=== PATIENT | female | born 1955 | race Caucasian/White ===

== ENCOUNTER 2022-06-15 22:10 | Emergency (ER) | payer MEDICARE, SELFPAY ==
[2022-06-15 22:21] VITALS: BP 190/80; PULSE 89; RESP 16; TEMP 36.4; O2SAT 98; BMI 36.6
[2022-06-15] MEDS: LORazepam 2 MG/ML inj 0.5 MG IVP (23:33)
[2022-06-15] MEDS: 0.9 % SODIUM CHLORIDE 1000 ml 1,000 ML IV (23:33)
[2022-06-15] MEDS: ONDANSETRON 2 MG/ML inj 4 MG IVP (23:33)
[2022-06-15] MEDS: GI COCKTAIL (VISC LIDO/ANTACID) 30 ML PO (23:36)
[2022-06-15] MEDS: diphenhydrAMINE 50 MG/ML inj 25 MG IVP (23:54)
[2022-06-15] MEDS: METOCLOPRAMIDE HCL 10 MG in 0.9 % SODIUM CHLORIDE 100 ml 100 ML 306 MG IVPB (23:56)
[2022-06-15 23:57] LABS: Basophils Percent Auto 0.1 % (0.0-3.0); Eosinophils Percent Auto 0.2 % (0.0-7.0); Hemoglobin* 17.5 gm/dL (12.0-16.0); Immature Granulocytes Abs Auto 0.11 K/uL (0.00-0.30); Mean Corpuscular HGB Conc 35 gm/dL (32-36); Mean Corpuscular Hemoglobin 29 pg (26-34); Mean Corpuscular Volume 83 fL (80-100); Monocytes Percent Auto 10.1 % (0.0-11.0); Neutrophils Percent Auto 80.8 % (42.0-72.0); Platelet Count* 276 K/uL (140-440); RDW Coefficient of Variation % 12.3 % (11.5-15.5); Red Blood Count 6.02 m/uL (4.00-5.20); White Blood Count* 13.34 K/uL (4.50-11.00)
[2022-06-16 00:08] LABS: Slide Review Reflex No
[2022-06-16 00:27] LABS: Chloride* 96 mmol/L (96-114); Sodium* 132 mmol/L (135-149)
[2022-06-16 00:30] LABS: Creatinine* 0.6 mg/dL (0.5-1.5); Est. Creatinine Clearance* 48.45; Estimated Glomerular Filt Rate 98 ml/min
[2022-06-16 00:31] LABS: Blood Urea Nitrogen* 12 mg/dL (7-30); Calcium* 8.6 mg/dL (8.4-10.6); Carbon Dioxide* 26 mmol/L (20-32); Glucose* 124 mg/dL (60-115); Potassium* 3.1 mmol/L (3.6-5.1)
[2022-06-16 00:34] LABS: C Reactive Protein* 2.4 mg/dL (0.5-1.0)
[2022-06-16 02:03] VITALS: BP 170/85; PULSE 74; RESP 18; TEMP 36.4; O2SAT 98
--- NOTE | 2022-06-16 02:24 | ED_ITS ---
HPI - Nausea/Vomiting/Diarrhea General Chief complaint: Nausea/Vomiting Stated complaint: Not feeling well post surgical Time Seen by Provider: 06/15/22 22:47 Source: patient, family, RN notes reviewed and old records reviewed History of Present Illness HPI Narrative: Recent 66-year-old woman presenting to the emergency department with a few episodes of vomiting today --said it was blue and purple. Eight days ago had a laparoscopic hysterectomy for grade 1 endometrial cancer. She also had a bilateral salpingo-oophorectomy. Lymph node biopsies as well. Struggled with postop nausea and vomiting requiring longer stay than the anticipated outpatient and also experienced esophageal reflux. Notes to not normally have a history of heartburn or reflux but she is having the symptoms again. No fever. No notable abdominal pain. She does have oxycodone available the but she has only been taking acetaminophen and ibuprofen had actually been better for few days upon return home and then today nausea vomiting again restarted. has had a little bit of dizziness when up. does not seem to be a major symptom. Does not have a prior diagnosis of vertigo. No fever. No increased abdominal pain. Per my review of records, it appears that lorazepam was possibly most helpful in her nausea. She does have a few tablets remaining as well as ODT Zofran at home. Apparently did have rather labile blood pressures both elevated and lower during this extended postoperative period. No cardiovascular disease noted otherwise. Related Data Home Medications Medication Instructions Recorded Confirmed alendronate 70 mg tablet 70 mg PO QWEEK 06/15/22 06/15/22 Allergies Allergy/AdvReac Type Severity Reaction Status Date / Time cefepime Allergy Intermediate Rash Verified 06/15/22 22:26 piperacillin [From Zosyn] Allergy Intermediate Rash Verified 06/15/22 22:26 tazobactam [From Zosyn] Allergy Intermediate Rash Verified 06/15/22 22:26 Review of Systems Status of ROS: Reports: 10 or more systems reviewed and unremarkable except as noted in History and below [facility] Medical History Cervical cancer Hurthle cell carcinoma of thyroid Osteoporosis Social History Smoking Status: Never smoker How often do you have a drink containing alcohol: never AUDIT-C Alcohol total score: 0 Non-prescribed substance use: denies use Exam Narrative: Exam Narrative: Is clearly uncomfortable. Prefers to keep eyes closed. Mumbling answers to responses. Not elaborating. This apparently was help presented prior with exacerbation of nausea. Skin is warm and dry. No evidence of trauma other than a bruise in the right deltoid. Recent IV placement as well. Moving all extremities without difficulty. No edema. Breathing easily. Lungs are clear. Cranial nerves 2-12 look to be intact. No loss of sensation. I do not appreciate nystagmus. Cardiovascular RRR no MR Cortés. Abdomen is soft. Overweight. Mildly tender in the suprapubic area. I do note initial blood pressure to be moderately elevated though rechecks are acceptably lower. Const: Vital Signs, click to edit/add: Vital Signs - 24 hr 06/15/22 22:21 06/16/22 02:03 06/16/22 02:26 Temperature 97.6 F 97.6 F Pulse Rate 68 Pulse Rate [Right Pulse Oximeter] 89 74 Respiratory Rate 16 18 16 Blood Pressure 129/80 Blood Pressure [Ri ght Upper Arm] 190/80 H 170/85 H Pulse Oximetry 98 98 Documenting provider has reviewed patient's vital signs: yes Course Course Hospital Course: Return security monitor without event. Initiated on fluid resuscitation. Treatment initially with lorazepam and Zofran. Still with nausea was ordered for diphenhydramine and metoclopramide. Ultimately able to tolerate a GI cocktail which did relieve her heartburn symptoms. Ultimately able to tolerate oral liquid intake form of water and juice. Warren she could return home. Energy seem to improve with lessening of nausea. Speech cleared. Opening her eyes. Ambulatory. Vital Signs Vital signs: Initial Vital Signs Temperature 97.6 F 06/15/22 22:21 Temperature Source Temporal Artery Scan 06/15/22 22:21 Pulse Rate 89 06/15/22 22:21 Respiratory Rate 16 06/15/22 22:21 Blood Pressure 190/80 H 06/15/22 22:21 Blood Pressure Mean 116 06/15/22 22:21 Blood Pressure Position Supine 06/15/22 22:21 Pulse Oximetry 98 06/15/22 22:21 Oxygen Delivery Method 06/15/22 22:21 Vital Signs Temperature 97.6 F 06/15/22 22:21 Pulse Rate 89 06/15/22 22:21 Respiratory Rate 16 06/15/22 22:21 Blood Pressure 190/80 H 06/15/22 22:21 Pulse Oximetry 98 06/15/22 22:21 Temperature 97.6 F 06/16/22 02:03 Pulse Rate 68 06/16/22 02:26 Respiratory Rate 16 06/16/22 02:26 Blood Pressure 129/80 06/16/22 02:26 Pulse Oximetry 98 06/16/22 02:03 MDM - Nausea/Vomiting/Diarrhea MDM Narrative Medical decision making narrative: Mildly elevated white count not inconsistent with recent surgery. Does not appear to have complications otherwise of surgery evident in history or physical exam. CRP only mildly elevated. Mildly low sodium and potassium. 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 I think the nausea prompting vomiting ultimately resulting in heartburn is more likely explanation. Medical Records Attestation: I reviewed the patient's medical records. Lab Data Attestation: I reviewed the patient's lab results. Labs: Lab Results 06/15/22 06/15/22 Range/Units 23:40 23:40 WBC 13.34 H (4.50-11.00) K/uL RBC 6.02 H (4.00-5.20) m/uL Hgb 17.5 H (12.0-16.0) gm/dL Hct 50.0 (33.0-51.0) % MCV 83 (80-100) fL MCH 29 (26-34) pg MCHC 35 (32-36) gm/dL RDW Coeff of Cortes 12.3 (11.5-15.5) % Plt Count 276 (140-440) K/uL Neut % (Auto) 80.8 H (42.0-72.0) % Lymph % (Auto) 8.0 L (20-44) % [place] % (Auto) 10.1 (0.0-11.0) % Eos % (Auto) 0.2 (0.0-7.0) % Baso % (Auto) 0.1 (0.0-3.0) % Neut # (Auto) 10.80 H (1.7-7.0) K/uL Lymph # (Auto) 1.10 (0.90-2.90) K/uL [place] # (Auto) 1.30 H (0.00-0.90) K/UL Eos # (Auto) 0.00 (0.00-0.50) K/uL Baso # (Auto) 0.00 (0.00-0.30) K/uL Abs Immat Gran (auto) 0.11 (0.00-0.30) K/uL Sodium 132 L (135-149) mmol/L Potassium 3.1 L (3.6-5.1) mmol/L Chloride 96 (96-114) mmol/L Carbon Dioxide 26 (20-32) mmol/L BUN 12 (7-30) mg/dL Creatinine 0.6 (0.5-1.5) mg/dL Estimated Creat Clear 48.45 Estimated GFR 98 ml/min Glucose 124 H (60-115) mg/dL Calcium 8.6 (8.4-10.6) mg/dL C-Reactive Protein 2.4 H (0.5-1.0) mg/dL Discharge Plan Discharge Clinical Impression: Nausea & vomiting Patient Disposition: Home w/ Parent or Adult Condition: Improved Additional Instructions: Slow advance of diet over the next 36 hours. Focus on hydration. Start with diluted juices, broth. Advancing to thicker soups and smoothies. Return for intractable vomiting, increasing and persistent abdominal pain, fever. If you experience a recurrence of the heartburn symptoms, might try liquid antacid/anti-gas. Prescriptions: No Action alendronate 70 mg tablet 70 mg PO QWEEK 0RF Label Comments: TAKE 1 TABLET (70 MG) BY MOUTH ONCE A WEEK IN THE MORNING. TAKE ON EMPTY STOMACH WITH FULL GLASS OF WATER. DO NOT LIE DOWN FOR 1 HR. Follow Up/Referrals: Rosalia Berkowitz DO [Primary Care Provider] - Stand Alone Forms: MyHealth Info Instructions
[2022-06-16 02:26] VITALS: BP 129/80; PULSE 68; RESP 16
== END 2022-06-16 02:10 | disposition home or self-care (01) ==
PROVIDERS: Emergency Provider Family Medicine; PCP Family Medicine
DX: R11.2 Nausea with vomiting, unspecified (principal)
CPT/HCPCS: 36415; 80048; 85025; 86140; 96365; 96375; 99283; 99284; A9270; J1200; J2060; J2405; J2765; J7030

== ENCOUNTER 2023-06-17 14:23 | Emergency (ER) | payer MEDICARE, SELFPAY ==
[2023-06-17] VITALS (9 sets, daily range): BP systolic 183; BP diastolic 91; PULSE 59–75; RESP 16; TEMP 36.9; O2SAT 95–99; BMI 36.6
--- NOTE | 2023-06-17 15:23 | ED_ITS ---
HPI - Nausea/Vomiting/Diarrhea General Time Seen by Provider: 15:46 Date Seen: 06/17/23 Chief complaint: Nausea/Vomiting Stated complaint: Vomiting Time Seen by Provider: 06/17/23 15:14 Source: patient and RN notes reviewed Mode of arrival: ambulatory Limitations: no limitations History of Present Illness HPI Narrative: Patient is a 67-year-old female coming in with nausea vomiting that started this morning. She felt like she had to go to the bathroom and proceeded to then have nausea vomiting. She has not been able to eat anything today, is not been able to keep any fluids down really at all. She is feeling weak. There has been no fevers or chills with this. She is burping some. She has basically only throwing up bile at this point. Her last bowel movement was yesterday and was normal. Is not passing gas from below. Has no history of prior bowel obstructions. About a year ago had a hysterectomy for early stage endometrial cancer per report. She did not have to do anything except the surgery, no radiation from what they are telling me. No other abdominal surgeries. No travel, no ill contacts that she is aware of. Denies any significant abdominal pain with this but does feel bloated. No associated respiratory symptoms. MD elicited complaint: nausea and vomiting Associated nausea: Yes Associated abdominal pain: No Related Data Home Medications Medication Instructions Recorded Confirmed alendronate 70 mg tablet 70 mg PO QWEEK 06/15/22 06/15/22 Allergies Allergy/AdvReac Type Severity Reaction Status Date / Time cefepime Allergy Intermediate Rash Verified 06/15/22 22:26 piperacillin [From Zosyn] Allergy Intermediate Rash Verified 06/15/22 22:26 tazobactam [From Zosyn] Allergy Intermediate Rash Verified 06/15/22 22:26 Review of Systems Status of ROS: Reports: 6 or more systems reviewed and unremarkable except as noted in History and below GI: Reports: nausea PFSH PFSH Medical History (Updated 06/17/23 @ 19:19 by Josephine Barcenas MD) Uterine cancer ?C55 - Malignant neoplasm of uterus, part unspecified (ICD-10) Hurthle cell carcinoma of thyroid ?C73 - Malignant neoplasm of thyroid gland (ICD-10) Osteoporosis ?M81.0 - Age-related osteoporosis without current pathological fracture (ICD- 10) Social History Smoking Status: Never smoker Do you use any of these nicotine containing products: None Second hand tobacco smoke exposure: No How often do you have a drink containing alcohol: never AUDIT-C Alcohol total score: 0 Non-prescribed substance use: denies use service: No Exam Const: Vital Signs, click to edit/add: Vital Signs - 24 hr 06/17/23 14:54 06/17/23 15:28 06/17/23 16:13 Temperature 98.4 F Pulse Rate 59 L Pulse Rate [Pulse Oximeter] 62 Respiratory Rate 16 Blood Pressure [Ri ght Upper Arm] 183/91 H Pulse Oximetry 99 96 97 Oxygen Delivery Me thod Room Air 06/17/23 16:42 06/17/23 17:00 06/17/23 17:30 Temperature Pulse Rate 64 64 65 Pulse Rate [Pulse Oximeter] Respiratory Rate Blood Pressure [Ri ght Upper Arm] Pulse Oximetry 98 95 97 Oxygen Delivery Me thod 06/17/23 18:00 06/17/23 18:34 06/17/23 19:00 Temperature Pulse Rate 75 68 72 Pulse Rate [Pulse Oximeter] Respiratory Rate Blood Pressure [Ri ght Upper Arm] Pulse Oximetry 97 98 95 Oxygen Delivery Me thod Documenting provider has reviewed patient's vital signs: yes Common normals: average body habitus, oriented x3 and alert General appearance: cooperative, well kempt and well developed Other: Seems uncomfortable nauseated, tends to keep her eyes closed and is holding onto an emesis bag. HENMT: Common normals: normocephalic, head/scalp atraumatic and hearing grossly normal bilaterally Head and scalp: normocephalic and atraumatic Neck & C-Spine: Common normals: full ROM, no lymphadenopathy and supple Resp: Common normals: normal respiratory effort, no retractions, no use of accessory muscles and clear to auscultation bilaterally Effort & inspection: able to speak in complete sentences Auscultation: clear to auscultation bi laterally Cardio: Common normals: regular rate, regular rhythm, S1 normal heart sound, S2 normal heart sound, no gallops and no clicks Rate: regular rate Rhythm: regular rhythm Heart sounds: S1 normal and S2 normal GI: Common normals: soft to palpation, non-tender, no hepatosplenomegaly and no masses Auscultation: hypoactive bowel sounds Palpation: soft and no hepatosplenomegaly Neuro: Common normals: oriented x3 Sensorium/orientation: alert Psych: Appearance: well kempt Course Course Hospital Course: Will place an IV, start 1 L normal saline and 4 mg IV Zofran for symptom control. Will get baseline labs. Will initiate a flat and upright abdominal x- ray to ensure no obstructive symptoms. They understand if there is anything concerning on the abdominal imaging plain films or on the labs, then we would likely proceed to CT imaging. Will see how she responds to the IV fluids and Zofran. Hopefully this is a gastroenteritis but obstructive bowel pathology certainly is a concern at this time. Reevaluation(s) Time of Reevaluation #1: 17:20 Reevaluation #1: Reviewed with patient that there is no definitive obstructive pathology on the abdominal film. There is stool buildup in the colon. She is still feeling nauseated, states she did start getting some mid abdominal pain. Will proceed with CT imaging to ensure were not missing any acute pathology. Did review that she has 4+ ketones and elevated lactate which certainly shows probable s ignificant dehydration. Will order 2 L of fluids. Time of Reevaluation #2: 19:12 Reevaluation #2: Reviewed CT findings with patient. She has a nonobstructing stone on the left side. She can review that with her primary care provider and see if urology would do anything with this. It may be important to know for the fact if she does get a urinalysis, might have some mild hematuria due to some irritation of the stone in the ureter. This stone is however not obstructing at this time per Radiology report. There is nothing to suggest any acute abnormality in abdomen. Reviewed with her that she would be considered to have viral gastroenteritis. Recommend ongoing conservative management with oral fluids and nausea barbara ceballos. Will send a prescription for Zofran from [facility] as her pharmacy is closed. Vital Signs Vital signs: Initial Vital Signs Temperature 98.4 F 06/17/23 14:54 Temperature Source Temporal Artery Scan 06/17/23 14:54 Pulse Rate 62 06/17/23 14:54 Respiratory Rate 16 06/17/23 14:54 Blood Pressure 183/91 H 06/17/23 14:54 Blood Pressure Mean 121 H 06/17/23 14:54 Pulse Oximetry 99 06/17/23 14:54 Oxygen Delivery Method Room Air 06/17/23 14:54 Vital Signs Temperature 98.4 F 06/17/23 14:54 Pulse Rate 62 06/17/23 14:54 Respiratory Rate 16 06/17/23 14:54 Blood Pressure 183/91 H 06/17/23 14:54 Pulse Oximetry 99 06/17/23 14:54 Oxygen Delivery Method Room Air 06/17/23 14:54 Temperature 98.4 F 06/17/23 14:54 Pulse Rate 72 06/17/23 19:00 Respiratory Rate 16 06/17/23 14:54 Blood Pressure 183/91 H 06/17/23 14:54 Pulse Oximetry 95 06/17/23 19:00 Oxygen Delivery Method Room Air 06/17/23 14:54 MDM - Nausea/Vomiting/Diarrhea Lab Data Attestation: I reviewed the patient's lab results. Labs: Lab Results 06/17/23 06/17/23 Range/Units 15:30 16:05 WBC 8.89 (4.50-11.00) K/uL RBC 5.38 H (4.00-5.20) m/uL Hgb 15.8 (12.0-16.0) gm/dL Hct 47.0 (33.0-51.0) % MCV 87 (80-100) fL MCH 29 (26-34) pg MCHC 34 (32-36) gm/dL RDW Coeff of Cortes 11.9 (11.5-15.5) % Plt Count 233 (140-440) K/uL Neut % (Auto) 90.2 H (42.0-72.0) % Lymph % (Auto) 7.8 L (20-44) % [place] % (Auto) 1.6 (0.0-11.0) % Eos % (Auto) 0.0 (0.0-7.0) % Baso % (Auto) 0.2 (0.0-3.0) % Neut # (Auto) 8.00 H (1.7-7.0) K/uL Lymph # (Auto) 0.70 L (0.90-2.90) K/uL [place] # (Auto) 0.10 (0.00-0.90) K/UL Eos # (Auto) 0.00 (0.00-0.50) K/uL Baso # (Auto) 0.02 (0.00-0.30) K/uL Abs Immat Gran (auto) 0.02 (0.00-0.30) K/uL Imm/Tot Granulo (auto) 0.2 % Sodium 136 (135-149) mmol/L Potassium 3.7 (3.6-5.1) mmol/L Chloride 100 (96-114) mmol/L Carbon Dioxide 25 (20-32) mmol/L BUN 15 (7-30) mg/dL Creatinine 0.7 (0.5-1.5) mg/dL Estimated Creat Clear 47.78 Estimated GFR 94 ml/min Glucose 134 H (60-115) mg/dL Lactate 3.2 H (0.5-1.9) mmol/L Calcium 9.3 (8.4-10.6) mg/dL Total Bilirubin 1.0 (0.1-1.5) mg/dL AST 36 H (12-35) U/L ALT 28 (4-35) U/L Alkaline Phosphatase 93 (40-150) U/L C-Reactive Protein 0.8 (0.5-1.0) mg/dL Total Protein 8.4 H (6.0-8.3) g/dL Albumin 5.0 (3.3-5.0) g/dL Urine Color Yellow (Yellow) Urine Appearance Clear (Clear) Urine pH 6.5 (5.0-8.5) Ur Specific [place] 1.025 (1.000-1.030) Urine Protein Trace A (Negative) Urine Glucose (UA) Negative (Negative) Urine Ketones 4+ A (Negative) Urine Blood 2+ A (Negative) Urine Nitrite Negative (Negative) Urine Bilirubin Negative (Negative) Urine Urobilinogen 0.2 (0.2-1.0) Ur Leukocyte Esterase Negative (Negative) Urine RBC 5-10 A (0-2) Urine WBC 0-2 (0-5) Ur Squamous Epith Cells Few (None-Few) Urine Bacteria None (None) Imaging Data Abdominal x-ray: Attestation: I have reviewed the pertinent imaging results. Radiologist's impression: Patient: DARRELL LOPEZ Facility:[facility] Patient ID:?[id number] Site Patient ID:?[id number]. Site :?[id number] Study:?XRay Abdomen/Pelvis 2 VIEWS-06/17/2023 4:45:21 PM Ordering Physician:Adele Burton Final Report: Indication: Nausea and vomiting Technique: Abdomen 2 view, 4 films Comparison: None Findings/Impression: No dilated loops of large or small intestine with a moderate amount of stool within the colon. Degenerative changes lower lumbar spine. Multiple phleboliths in the pelvis. Mild vascular distention at the lung bases. Dictated by Minesh Nelson MD @ 06/17/2023 5:13:41 PM (Electronic Signature) CT scan - abdomen: Attestation: I have reviewed the pertinent imaging results. Radiologist's impression: Patient: DARRELL LOPEZ Facility:?[facility] Patient ID:?[id number] Site Patient ID:?[id number]. Site :?[id number] Study:?CT Abdomen/Pelvis W ISOVUE 370-06/17/2023 5:59:43 PM Ordering Physician:?Swapna Burton Final Report: INDICATION: Abdominal pain with nausea and vomiting. TECHNIQUE: CT abdomen and pelvis acquired with 100 cc Isovue 370 IV contrast. COMPARISON: None. FINDINGS: Lower chest: Unremarkable. Liver: Fatty infiltration. Otherwise unremarkable. Gallbladder and bile ducts: Unremarkable. No stones or inflammation. No biliary dilatation. Pancreas: Unremarkable. No mass or inflammation. Spleen: Unremarkable. Normal in size. No masses. Adrenal glands: Unremarkable. No nodules. Kidneys: A prominent 7 x 5 mm stone is at the left ureterovesical junction and appears imminent to pass into the bladder lumen. No other stones. No hydronephrosis. Kidneys otherwise unremarkable. GI tract: Unremarkable. Normal in caliber. No sign of mass or inflammation. Normal appendix. Vasculature: Abdominal aorta is normal in caliber. Mesenteric arteries are patent. Lymph nodes: No lymphadenopathy. Peritoneum/Abdominal Wall: Unremarkable. No sign of mass or infiltration. No free air or significant free fluid. Pelvis: Unremarkable. Bones: Unremarkable for age. IMPRESSION: 7 x 5 mm stone at the left ureterovesical junction is not causing obstructive changes at this time. Remainder the exam is unremarkable. No other finding to explain abdominal pain. Please note that all CT scans at this facility use dose modulation, iterative reconstruction, and/or weight-based dosing when appropriate to reduce radiation dose to as low as reasonably achievable. Dictated by Justin Mitchell MD @ 06/17/2023 6:57:43 PM (Electronic Signature) Discharge Plan Discharge Clinical Impression: Gastroenteritis, Dehydration Patient Disposition: Home, Self-Care Condition: Stable Instructions: Dehydration (ED), Gastroenteritis (ED) Additional Instructions: Use Zofran to help with any nausea so that you can drink fluids. Recommend frequent sips of fluids every 5-10 minutes while awake, this approach will help prevent overload of your stomach and further vomiting. You can advance diet as tolerated back to normal. If you are not improving over the next 24-48 hours, feel you are worsening in any point to have further concerns, please seek re-evaluation. Diarrhea could develop with gastroenteritis. Activity Level: Activity as Tolerated Prescriptions: No Action alendronate 70 mg tablet 70 mg PO QWEEK Patient Comments: TAKE 1 TABLET (70 MG) BY MOUTH ONCE A WEEK IN THE MORNING. TAKE ON EMPTY STOMACH WITH FULL GLASS OF WATER. DO NOT LIE DOWN FOR 1 HR. Follow Up/Referrals: Rosalia Berkowitz DO [Primary Care Provider] - Stand Alone Forms: MyHealth Info Instructions Critical Care Time Critical Care Time Critical Care Time: No
[2023-06-17 15:49] LABS: Appearance Urine Clear (Clear); Bilirubin Urine Negative (Negative); Blood Urine 2+ (Negative); Color Urine Yellow (Yellow); Glucose Urine Negative (Negative); Ketones Urine 4+ (Negative); Leukocyte Esterase Urine Negative (Negative); Nitrite Urine Negative (Negative); Protein Urine Trace (Negative); Specific Gravity Urine 1.025 (1.000-1.030); Urobilinogen Urine 0.2 (0.2-1.0); pH Urine 6.5 (5.0-8.5)
--- NOTE | 2023-06-17 15:51 | CRLHL7_ITS ---
For Patients: As a result of the Century Cures Act, medical imaging exams and procedure reports are released immediately into your electronic medical record. You may view this report before your referring provider. If you have questions, please contact your health care provider. Indication: Nausea and vomiting Technique: Abdomen 2 view, 4 films Comparison: None Findings/Impression: No dilated loops of large or small intestine with a moderate amount of stool within the colon. Degenerative changes lower lumbar spine. Multiple phleboliths in the pelvis. Mild vascular distention at the lung bases. Dictated by Minesh Nelson MD @ 06/17/2023 5:13:41 PM (Electronically Signed)
[2023-06-17] MEDS: ONDANSETRON 2 MG/ML inj 4 MG IVP (16:13)
[2023-06-17] MEDS: 0.9 % SODIUM CHLORIDE 1000 ml 1,000 ML 500 ML IV (16:13)
[2023-06-17 16:14] LABS: Lactate* 3.2 mmol/L (0.5-1.9)
[2023-06-17 16:14] LABS: WBC Urine 0-2 (0-5)
[2023-06-17 16:15] LABS: Squamous Epithelial Cell Urine Few (None-Few)
[2023-06-17 16:29] LABS: Basophils Absolute Auto 0.02 K/uL (0.00-0.30); Basophils Percent Auto 0.2 % (0.0-3.0); Hemoglobin* 15.8 gm/dL (12.0-16.0); Immature Granulocytes Abs Auto 0.02 K/uL (0.00-0.30); Immature Granulocytes Pct Auto 0.2 %; Lymphocytes Percent Auto 7.8 % (20-44); Mean Corpuscular HGB Conc 34 gm/dL (32-36); Mean Corpuscular Hemoglobin 29 pg (26-34); Mean Corpuscular Volume 87 fL (80-100); Monocytes Percent Auto 1.6 % (0.0-11.0); Neutrophils Percent Auto 90.2 % (42.0-72.0); Platelet Count* 233 K/uL (140-440); RDW Coefficient of Variation % 11.9 % (11.5-15.5); Red Blood Count 5.38 m/uL (4.00-5.20); White Blood Count* 8.89 K/uL (4.50-11.00)
[2023-06-17 16:32] LABS: Chloride* 100 mmol/L (96-114)
[2023-06-17 16:33] LABS: Sodium* 136 mmol/L (135-149)
[2023-06-17 16:34] LABS: Potassium* 3.7 mmol/L (3.6-5.1); Slide Review Reflex No
[2023-06-17 16:36] LABS: Alanine Aminotransferase* 28 U/L (4-35); Alkaline Phosphatase* 93 U/L (40-150); Aspartate Amino Transferase* 36 U/L (12-35); Carbon Dioxide* 25 mmol/L (20-32); Creatinine* 0.7 mg/dL (0.5-1.5); Est. Creatinine Clearance* 47.78; Estimated Glomerular Filt Rate 94 ml/min; Total Protein* 8.4 g/dL (6.0-8.3)
[2023-06-17 16:37] LABS: Blood Urea Nitrogen* 15 mg/dL (7-30); Calcium* 9.3 mg/dL (8.4-10.6); Glucose* 134 mg/dL (60-115)
[2023-06-17 16:39] LABS: C Reactive Protein* 0.8 mg/dL (0.5-1.0)
--- NOTE | 2023-06-17 17:21 | CRLHL7_ITS ---
For Patients: As a result of the Century Cures Act, medical imaging exams and procedure reports are released immediately into your electronic medical record. You may view this report before your referring provider. If you have questions, please contact your health care provider. INDICATION: Abdominal pain with nausea and vomiting. TECHNIQUE: CT abdomen and pelvis acquired with 100 cc Isovue 370 IV contrast. COMPARISON: None. FINDINGS: Lower chest: Unremarkable. Liver: Fatty infiltration. Otherwise unremarkable. Gallbladder and bile ducts: Unremarkable. No stones or inflammation. No biliary dilatation. Pancreas: Unremarkable. No mass or inflammation. Spleen: Unremarkable. Normal in size. No masses. Adrenal glands: Unremarkable. No nodules. Kidneys: A prominent 7 x 5 mm stone is at the left ureterovesical junction and appears imminent to pass into the bladder lumen. No other stones. No hydronephrosis. Kidneys otherwise unremarkable. GI tract: Unremarkable. Normal in caliber. No sign of mass or inflammation. Normal appendix. Vasculature: Abdominal aorta is normal in caliber. Mesenteric arteries are patent. Lymph nodes: No lymphadenopathy. Peritoneum/Abdominal Wall: Unremarkable. No sign of mass or infiltration. No free air or significant free fluid. Pelvis: Unremarkable. Bones: Unremarkable for age. IMPRESSION: 7 x 5 mm stone at the left ureterovesical junction is not causing obstructive changes at this time. Remainder the exam is unremarkable. No other finding to explain abdominal pain. Please note that all CT scans at this facility use dose modulation, iterative reconstruction, and/or weight-based dosing when appropriate to reduce radiation dose to as low as reasonably achievable. Dictated by Justin Mitchell MD @ 06/17/2023 6:57:43 PM (Electronically Signed)
[2023-06-17] MEDS: LACTATED RINGERS 1000 ML 1,000 ML IV (17:41)
--- NOTE | 2023-06-17 18:12 | ED.NURSE ---
Pt vomited x [address] scan. Pt reports feeling better after emesis episode. Dr. Montalvo notified.
== END 2023-06-17 19:33 | disposition home or self-care (01) ==
PROVIDERS: Emergency Provider Family Medicine; PCP Family Medicine
DX: K52.9 Noninfective gastroenteritis and colitis, unspecified (principal); E86.0 Dehydration
CPT/HCPCS: 36415; 74019; 74177; 80053; 81003; 81015; 83605; 85025; 86140; 94761; 96374; 99284; 99285; J2405; J7030; J7120; Q9967